=== PATIENT | male | born 1970 | race Caucasian/White ===

== ENCOUNTER 2025-05-07 07:52 | Day surgery (SDC) | payer BC ==
[2025-05-07] MEDS: Lactated Ringers 1,000 ML IV SCH (10:45)
[2025-05-07] MEDS ORDERED: Midazolam 1 MG/ML 2 ML SDV IV ONE (10:53)
[2025-05-07] MEDS ORDERED: Ketamine 500 mg/10 ML MDV IV ONE (10:53)
[2025-05-07] MEDS ORDERED: Ondansetron 4 MG/2 ML SDV IVPUSH ONE (10:53)
[2025-05-07] MEDS ORDERED: Propofol 200 MG/20 ML SDV IV ONE (10:53)
[2025-05-07] MEDS ORDERED: Sodium Chloride 0.9% 10 ML Syringe FLUSH PRN (11:45)
[2025-05-07 11:53] VITALS: PULSE 80
[2025-05-07 12:21] VITALS: BP 141/96
== END 2025-05-07 12:37 | disposition home or self-care (01) ==
LOC: FB.ED 07:52 → FB.SDS 10:52
PROVIDERS: ATTEND Surgery
DX: K29.50 Unspecified chronic gastritis without bleeding (principal); K22.89 Other specified disease of esophagus; K20.90 Esophagitis, unspecified without bleeding; T18.108A Unspecified foreign body in esophagus causing other injury, initial encounter; E78.00 Pure hypercholesterolemia, unspecified; I10 Essential (primary) hypertension; Z79.899 Other long term (current) drug therapy
CPT/HCPCS: 00731; 88305; 88342; 96374; 99283-25; 99284; J1610; J2250; J2405; J2704; J3490; J7120